=== PATIENT | male | born 1990 | race American Indian/Alaskan Native ===

== ENCOUNTER 2017-10-21 13:19 | Emergency (ER) | payer OTHER ==
[2017-10-21 13:37] VITALS: BP 123/78
== END 2017-10-21 17:03 | disposition left against medical advice (07) ==
LOC: ED 13:19
DX: G43.909 Migraine, unspecified, not intractable, without status migrainosus (principal); Z53.21 Procedure and treatment not carried out due to patient leaving prior to being seen by health care provider

== ENCOUNTER 2022-02-24 17:50 | Emergency (ER) | payer OTHER ==
[2022-02-24 18:09] VITALS: BP 108/72
--- NOTE | 2022-02-24 18:48 | XRay Report ---
CHEST 2 VIEWS INDICATION / CLINICAL INFORMATION: chest pain. COMPARISON: None available. FINDINGS: SUPPORT DEVICES: None. HEART / MEDIASTINUM: No significant abnormality. LUNGS / PLEURA: No significant pulmonary or pleural abnormality. No pneumothorax. ADDITIONAL FINDINGS: No significant additional findings. IMPRESSION: 1. No acute findings. Signer Name: Diego Hernández MD Signed: 02/24/2022 6:43 PM Workstation Name: [id number]
--- NOTE | 2022-02-25 11:26 | Electrocardiograph Report ---
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
== END 2022-02-25 06:31 | disposition left against medical advice (07) ==
LOC: ED 17:50
DX: R07.9 Chest pain, unspecified (principal); Z53.21 Procedure and treatment not carried out due to patient leaving prior to being seen by health care provider
CPT/HCPCS: 71046; 93005